=== PATIENT | female | born 1980 | race Caucasian/White ===

== ENCOUNTER 2020-09-21 19:50 | Emergency (ER) | payer OTHER ==
[2020-09-21 19:59] VITALS: TEMP 98.1; BMI 30.2
[2020-09-21] MEDS ORDERED: FAMOTIDINE 20 MG/50 ML IVPB 20 MG/50 ML MG IVPB ONE ×2 (20:09→20:36)
[2020-09-21] MEDS ORDERED: DEXAMETHASONE SOD PHOSPHATE 20 MG/5 ML VIAL IVPB ONE (20:09)
[2020-09-21] MEDS ORDERED: DEXAMETHASONE SOD PHOSPHATE 10 MG/1 ML VIAL ONE (20:12)
[2020-09-21] MEDS ORDERED: diphenhydrAMINE HCL 25 MG CAPSULE (FP) PO ONE ×2 (21:39→21:41)
[2020-09-21 22:13] VITALS: BP 152/94; PULSE 100
== END 2020-09-21 22:15 | disposition home or self-care (01) ==
LOC: JER 19:50
PROC: 3E033NZ Introduction of Analgesics, Hypnotics, Sedatives into Peripheral Vein, Percutaneous Approach (ICD-10-PCS; principal; 2020-09-21)
PROC: 3E033GC Introduction of Other Therapeutic Substance into Peripheral Vein, Percutaneous Approach (ICD-10-PCS; 2020-09-21)
DX: T78.40XA Allergy, unspecified, initial encounter (principal)
CPT/HCPCS: 99285-25

== ENCOUNTER 2021-08-25 11:08 | Emergency (ER) | payer OTHER ==
[2021-08-25 11:49] VITALS: BP 141/99; PULSE 108; TEMP 98.7; BMI 34.7
== END 2021-08-25 12:41 | disposition home or self-care (01) ==
LOC: JERFT 11:08
DX: L50.0 Allergic urticaria (principal)
CPT/HCPCS: 99281-25